=== PATIENT | female | born 1935 | race Caucasian/White ===

== ENCOUNTER 2021-11-10 08:36 | Emergency (ER) | payer MEDICARE ==
[2021-11-10 09:35] LABS: #Basophils 0.1 10x3/uL (0.0-0.2); #Eosinphils 0.3 10x3/uL (0.0-0.5); #Monocytes 0.9 10x3/uL (0.0-1.1); #Neutrophils 5.3 10x3/uL (1.5-8.4); %Basophils 1.5 % (0.0-2.0); %Eosinophils 3.7 % (0.0-6.0); %Lymphocytes 14.3 % (18.0-47.0); %Monocytes 11.3 % (0.0-10.0); Hemoglobin 13.4 g/dL (12.0-15.5); Mean Corpuscular HGB CONC 33.3 g/dL (32.0-36.0); Mean Corpuscular Hemoglobin 29.6 pg (27.0-33.0); Mean Corpuscular Volume 88.7 fl (81.6-98.3); Mean Platelet Volume 9.5 fl (7.4-10.4); Platelet Count 321 10x3/uL (150-450); RBC Distribution Width 15.2 % (11.5-14.5); Red Blood Cell (RBC) Count 4.53 10x6/uL (3.90-5.03); White Blood Cell (WBC) Count 7.8 10x3/uL (3.5-10.5)
[2021-11-10 09:45] LABS: ALT (SGPT) 40 U/L (8-55); AST (SGOT) 39 U/L (5-34); Albumin 3.6 g/dL (3.4-4.8); Alkaline Phosphatase 116 U/L (40-110); Anion Gap 13 mmol/L (10-20); BUN (Urea Nitrogen) 20 mg/dL (9.8-20.1); Bilirubin, Total 0.9 mg/dL (0.2-1.2); Calc. Creatinine Clearance 0 mL/min (70-130); Calcium 9.4 mg/dL (7.8-10.44); Carbon Dioxide 24 mmol/L (23-31); Chloride 103 mmol/L (98-107); Estimated GFR 61; Globulin 4.3 g/dL (2.4-3.5); Glucose 97 mg/dL (83-110); Potassium 4.4 mmol/L (3.5-5.1); Protein, Total 7.9 g/dL (5.8-8.1); Sodium 136 mmol/L (136-145)
[2021-11-10] MEDS ORDERED: Furosemide 40 MG/4 ML VIAL ONE (10:49)
== END 2021-11-10 10:52 | disposition home or self-care (01) ==
LOC: CSHERS 08:36
DX: I11.0 Hypertensive heart disease with heart failure (principal); I50.9 Heart failure, unspecified; I48.91 Unspecified atrial fibrillation; E03.9 Hypothyroidism, unspecified; Z79.01 Long term (current) use of anticoagulants; Z79.899 Other long term (current) drug therapy
CPT/HCPCS: 71045; 80053; 83880; 84484; 85025; 93005; 96374; J1940

== ENCOUNTER 2022-02-23 00:02 | Emergency (ER) | payer MEDICARE ==
[2022-02-23 00:47] LABS: Calcium 9.9 mg/dL (7.8-10.44); Chloride 98 mmol/L (98-107); Potassium 4.5 mmol/L (3.5-5.1); Sodium 138 mmol/L (136-145)
[2022-02-23 00:48] LABS: MDiff Complete? YES; Mean Corpuscular Hemoglobin 31.1 pg (27.0-33.0); Mean Corpuscular Volume 88.6 fl (81.6-98.3); Platelet Count 359 10x3/uL (150-450); Platelet Morphology Comment Appears Adequate; RBC Distribution Width 13.7 % (11.5-14.5); Red Blood Cell (RBC) Count 4.83 10x6/uL (3.90-5.03); White Blood Cell (WBC) Count 10.2 10x3/uL (3.5-10.5)
[2022-02-23 01:02] LABS: ALT (SGPT) 12 U/L (8-55); AST (SGOT) 22 U/L (5-34); Albumin 3.9 g/dL (3.4-4.8); Alkaline Phosphatase 114 U/L (40-110); BUN (Urea Nitrogen) 36 mg/dL (9.8-20.1); Bilirubin, Total 0.5 mg/dL (0.2-1.2); Calc. Creatinine Clearance 0 mL/min (70-130); Carbon Dioxide 29 mmol/L (23-31); Estimated GFR 41; Globulin 4.5 g/dL (2.4-3.5); Glucose 93 mg/dL (83-110); Lipase 69 U/L (8-78); Protein, Total 8.4 g/dL (5.8-8.1)
[2022-02-23] MEDS ORDERED: Aspirin Chewable 81 MG TAB ONE (01:04)
[2022-02-23 01:33] LABS: Band 1 % (5-11); Eosinophils 4 % (0-10); Lymphocytes 18 % (21-51); Monocytes 17 % (0-10); Neutrophil 58 % (42-75); Reactive Lymphocytes 2 % (0-10)
[2022-02-23 01:49] LABS: Anion Gap 16 mmol/L (10-20)
[2022-02-23 02:43] LABS: SARS-CoV-2 NAA Rapid Test Not Detected (NotDetected)
[2022-02-23 04:24] LABS: Troponin I Less than 0.010 ng/mL (< 0.028)
[2022-02-23] MEDS ORDERED: Nitroglycerin 0.4 MG TAB (25 Tab Bottle) SL PRN (05:43)
== END 2022-02-23 03:51 | disposition short-term general hospital (02) ==
LOC: CSHERS 00:02
DX: R07.89 Other chest pain (principal); I10 Essential (primary) hypertension; I25.2 Old myocardial infarction; I48.91 Unspecified atrial fibrillation; E03.9 Hypothyroidism, unspecified; Z20.822 Contact with and (suspected) exposure to COVID-19; Z79.01 Long term (current) use of anticoagulants; Z79.899 Other long term (current) drug therapy
CPT/HCPCS: 71045; 80053; 82550; 83690; 84484 ×2; 85025; 93005; 99285; U0002

== ENCOUNTER 2023-12-21 18:49 | Emergency (ER) | payer MEDICARE | END 2023-12-21 20:15 | disposition left against medical advice (07) | LOC: CSHERS 18:49 | DX: Z53.21 Procedure and treatment not carried out due to patient leaving prior to being seen by health care provider (principal) ==

== ENCOUNTER 2024-03-31 14:50 | Emergency (ER) | payer MEDICARE ==
[2024-03-31] MEDS ORDERED: Metoclopramide HCl 10 MG (2 mL) VIAL ONE (15:26)
[2024-03-31] MEDS ORDERED: Acetaminophen 325 MG TAB ONE (15:26)
== END 2024-03-31 17:25 | disposition home or self-care (01) ==
LOC: CSHERS 14:50
DX: S00.03XA Contusion of scalp, initial encounter (principal); I48.91 Unspecified atrial fibrillation; I10 Essential (primary) hypertension; R29.700 NIHSS score 0; Z79.890 Hormone replacement therapy; Z79.01 Long term (current) use of anticoagulants; Z79.899 Other long term (current) drug therapy; W18.30XA Fall on same level, unspecified, initial encounter; Y93.K1 Activity, walking an animal
CPT/HCPCS: 70450; 73502; 96374; 99283; J2765